=== PATIENT | female | born 1945 | race Caucasian/White ===

== ENCOUNTER → 2016-07-02 | Outpatient (CLI) | payer MEDICARE, BC ==
[~2016-07-02] MED LIST: ASPIRIN 81M81 MG/TA2 PO; CALCIUM 600600 M2 PO; CIPRO 500MG TA500 MG PO; CLEOCIN HC150 MG/CAP PO; COZAAR 50MG50 MG/TAB PO; DILAUDID 2MG TAB2 MG PO; FLONASE NASAL S16 GM NS; GLUCOPHAGE500 MG/TAB PO; LOPID 600M600 MG/TAB PO; LORATADINE10 MG PO; METRONIDAZOLE500 MG PO; MULTIPLE VITAMI1 CAP PO; MULTIPLE VITAMI1 TA5 PO; MYLANTA 150 ML150 M1 PO; NEW ENERGY1 CAP PO; NITROSTAT0.4 MG/TAB SL; NORCO 325 MG-51 TAB; NORCO 325 MG-51 TAB PO; NORCO 325 MG-7.1 TAB PO; PRILOSEC 20MG20 MG PO; PRILOSEC10 MG; SIMVASTATIN10 MG PO; TYLENOL 500MG500 MG PO; ULTRAM50 MG PO; ZESTRIL 5MG5 MG PO; ZOCOR 20MG20 MG PO; ZOFRAN4 M1 PO
[2016-07-02 17:02] LABS: PH 6 (5-8); SQUAMOUS EPITHELIAL 0-2 /hpf; URINE APPEARANCE Clear; URINE BACTERIA Rare /hpf; URINE BILIRUBIN Negative (NEGATIVE); URINE BLOOD 1+ (NEGATIVE); URINE COLOR Yellow; URINE GLUCOSE Negative (NEGATIVE); URINE KETONE Negative (NEGATIVE); URINE RBC 0-2 /hpf; URINE UROBILINOGEN Negative (NEGATIVE)
== END ==
LOC: ZCOL.LAB 16:17
PROVIDERS: Internal Medicine
DX: R31.1 Benign essential microscopic hematuria (principal)

== ENCOUNTER → 2016-07-03 | Outpatient (REF) ==
[2016-07-03 10:07] LABS: INFLUENZA B NEGATIVE
== END ==
LOC: ZCOL.LAB 09:47
PROVIDERS: Internal Medicine
DX: Z01.89 Encounter for other specified special examinations (principal)

== ENCOUNTER → 2016-07-30 | Outpatient (CLI) | payer MEDICARE, BC | LOC: COL.RAD 07:49 | DX: M25.551 Pain in right hip (principal) | CPT/HCPCS: J3301; Q9967 ==

== ENCOUNTER → 2016-08-14 | Outpatient (CLI) | payer MEDICARE, BC | LOC: COL.RAD 12:34 | DX: M25.571 Pain in right ankle and joints of right foot (principal) | CPT/HCPCS: J3301; Q9967 ==

== ENCOUNTER → 2016-09-25 | Outpatient (CLI) | payer MEDICARE, BC | LOC: MC.RAD 09:59 | DX: Z12.31 Encounter for screening mammogram for malignant neoplasm of breast (principal) ==

== ENCOUNTER → 2016-12-10 | Outpatient (CLI) | payer MEDICARE, BC | LOC: COL.RAD 10:47 | DX: M79.671 Pain in right foot (principal) | CPT/HCPCS: J3301; Q9967 ==

== ENCOUNTER → 2017-06-20 | Outpatient (CLI) | payer MEDICARE, BC | LOC: COL.RAD 06-05 13:00 | DX: M79.671 Pain in right foot (principal) | CPT/HCPCS: J3301; Q9967 ==

== ENCOUNTER → 2017-08-11 | Outpatient (CLI) | payer MEDICARE, BC | LOC: COL.CARD 08:56 | DX: R68.89 Other general symptoms and signs (principal) ==

== ENCOUNTER → 2017-10-16 | Outpatient (CLI) | payer MEDICARE, BC | LOC: MC.RAD 10:21 | DX: Z12.31 Encounter for screening mammogram for malignant neoplasm of breast (principal) ==

== ENCOUNTER → 2018-01-30 | Outpatient (CLI) | payer MEDICARE, BC | LOC: COL.RAD 08:30 | DX: M19.071 Primary osteoarthritis, right ankle and foot (principal) | CPT/HCPCS: J3301; Q9967 ==

== ENCOUNTER → 2018-11-03 | Outpatient (CLI) | payer MEDICARE, BC | LOC: MC.RAD 09:56 | DX: Z12.31 Encounter for screening mammogram for malignant neoplasm of breast (principal) ==

== ENCOUNTER 2020-02-25 10:46 | Inpatient (IN) | payer MEDICARE, BC ==
[~2020-02-25] VITALS: Ht 170.2 cm; Wt 99.8 kg
[2020-02-25] MEDS ORDERED: DIABETA1.25 MG PO (11:01)
[2020-02-25] MEDS ORDERED: VITAMIN C500 MG PO (11:02)
[2020-02-25] MEDS ORDERED: PROBIOTIC-SUNMARK (11:03)
[2020-02-25] MEDS ORDERED: OSCAL 500 TAB500 MG PO (11:04)
[2020-02-25] MEDS ORDERED: PRILOSEC10 MG PO (11:04)
[2020-02-25] MEDS ORDERED: CYMBALTA 20MG20 MG PO (11:04)
[2020-02-25] MEDS ORDERED: OMEGA-3 1000 MG1 CAP PO (11:05)
[2020-02-25 11:36] LABS: COLLECTION METHOD CLEAN CATCH
[2020-02-25 11:44] LABS: MUCOUS Present /lpf; PH 6 (5-8); SQUAMOUS EPITHELIAL 0-2 /hpf; URINE APPEARANCE Clear; URINE BACTERIA None Seen /hpf; URINE BILIRUBIN Negative (NEGATIVE); URINE BLOOD Negative (NEGATIVE); URINE COLOR Yellow; URINE GLUCOSE 1+ (NEGATIVE); URINE KETONE Negative (NEGATIVE); URINE LEUKOCYTE ESTERASE Negative (NEGATIVE); URINE NITRATE Negative (NEGATIVE); URINE PROTEIN(semi-quant) Negative (NEGATIVE); URINE UROBILINOGEN Negative (NEGATIVE)
[2020-02-25 12:20] LABS: BASO % 0.2 % (0.0-2.0); EOS % 0.2 % (0-4.0); GRAN # 4.9 (1.4-6.5); GRAN % 81.4 % (42.2-75.2); HEMATOCRIT 38.2 % (37.0-47.0); HEMOGLOBIN 12.5 g/dl (12.5-16.0); LYMPH # 0.7 (1.2-3.4); LYMPH % 12.4 % (20.0-51.0); MEAN CELL VOLUME 88 fl (80.0-100.0); MEAN CORPUSCULAR HEMOGLOBIN 29 pg (27.0-31.0); MEAN CORPUSCULAR HGB CONC 33 g/dl (33.0-37.0); MEAN PLATELET VOLUME 9.7 fl (7.4-10.4); MONO # 0.3 (0.1-0.6); MONO % 5.5 % (1.7-9.3); PLATELET COUNT 143 K/mm3 (130-400); RED BLOOD COUNT 4.33 M/mm3 (4.10-5.30); REDCELL DISTRIBUTION WIDTH-CV 14.2 % (11.5-14.5)
[2020-02-25 12:26] LABS: INR 1.1 (0.8-3.0)
[2020-02-25 12:35] LABS: ALANINE AMINOTRANSFERASE 19 U/L (4-34); ALBUMIN 3.7 gm/dL (3.5-5.0); ALKALINE PHOSPHATASE 74 U/L (50-136); ANION GAP 7 mmol/L (7-16); AST,SGOT 30 U/L (15-37); BILIRUBIN,TOTAL 0.4 mg/dL (0.0-1.0); BLOOD UREA NITROGEN 11 mg/dL (7-17); C-REACTIVE PROTEIN 8.8 mg/dL (0.0-0.9); CALCIUM 7.7 mg/dL (8.4-10.2); CARBON DIOXIDE 27 mmol/L (22-30); CHLORIDE 101 mmol/L (98-107); CREATININE, serum 0.61 (0.52-1.25); GLUCOSE 176 mg/dL (74-106); SODIUM 135 mmol/L (137-145); TOTAL PROTEIN 6.8 gm/dL (6.4-8.2)
[2020-02-25 12:45] LABS: TROPONIN-I < 0.012 ng/mL (0.000-0.035)
--- NOTE | 2020-02-25 19:27 | NUR ---
Pt admitted to floor this afternoon, initial nursing assessments complete.
--- NOTE | 2020-02-25 19:40 | NUR ---
Received report from Jose David. Seen patient awake, lying in bed. She's on O2 at 3lpm via NC. She does have some cough. No tele. With IV on right forearm infusing NS at 75ml/hr. She denies pain. Call light within reach.
[2020-02-25 20:11] VITALS: BP 137/62; PULSE 94; TEMP 99
--- NOTE | 2020-02-25 21:26 | NUR ---
House supervisior called stating patient ddimer 386. Sheeba VERMA notified. No new orders.
[2020-02-25 22:17] VITALS: TEMP 98.8
--- NOTE | 2020-02-25 22:24 | NUR ---
Patient called asking if she can have the inhaler again. Informed Kanu of RT and she said she will give it to the patient. She complains of feeling hot and perspiring. Took her temp and she was 98.8F. Her room temp was set to the warmest temperature. Informed her I will just adjust her room temp so she won't feel warm.
[2020-02-25 23:41] VITALS: BP 105/60; PULSE 87; TEMP 99.7
--- NOTE | 2020-02-26 00:04 | NUR ---
Patient's SPO2 was at 89% on 3lpm. Increased to 4lpm and still at 89%-90%. Increased O2 at 5lpm and she was at 92%. Informed RT that oxygen was increased. Will continue to monitor patient.
[2020-02-26 03:30] VITALS: BP 110/65; PULSE 80; TEMP 98.3
--- NOTE | 2020-02-26 04:00 | NUR ---
Patient complains of acidity/sick stomach. Offered if she can take Tums and she said she's okay with it. Informed Sheeba VERMA via phone call regarding patient's complain and she put an order for Tums. Updated her as well that we increase her O2 from 3lpm to 5lpm via NC.
--- NOTE | 2020-02-26 06:36 | NUR ---
Patient states she was able to sleep after removing her gown as she was perspiring. O2 at 5lpm via NC, with SPO2 at 92%. Patient states she doesn't have any underwear on her, briefs were provided. Remained afebrile the whole night.
[2020-02-26 08:49] VITALS: BP 128/42; PULSE 84; TEMP 97.6
--- NOTE | 2020-02-26 09:22 | NUR ---
Pt napping upon entry, easily awakened, no C/O pain at this time, shift assessments complete, Pt currently on 5 lpm O2.
[2020-02-26 11:12] VITALS: BP 122/64; PULSE 76; TEMP 98.2
--- NOTE | 2020-02-26 11:47 | NUR ---
SW called spouse Gene [phone] to complete intake due to patients current clinical status. Spouse provides that he and patient live in [place]. He also provides that patient currently uses a walking stick to get around the home and is independent with ADL's. Spouse provides that the PCP is Dr. Joe Myers, pharmacy is in [facility], and that patient is able to afford medications. Spouse provides that he is unsure at this time about DPOA-HC paper work, but he is the primary contact. Spouse states that he is not concerned about patient returning home at this time and that he will be the one assisting her when she does come home, and will not need any outside services upon dc. SW will continue to follow.
[2020-02-26 16:00] VITALS: BP 126/62; PULSE 78; TEMP 98.1
[2020-02-26 18:30] VITALS: BP 126/62; PULSE 78; TEMP 98.1
--- NOTE | 2020-02-26 20:00 | NUR ---
Assessment complete. Patient is alert and oriented with no complaints of pain. No increased work of breathing is noted and patient is satting 94% on 8 liters of oxygen. Patient states she feels she is breathing much easier this evening. No edema is present. Lung sounds are clear with fine crackles in the bases. IV fluids infusing at 75 ml/hr. Patient is afebrile. No new concerns at this time; will continue to monitor.
[2020-02-26 22:17] VITALS: BP 116/70; PULSE 71; TEMP 98.6
[2020-02-26 23:05] LABS: BASO % 0.1 % (0.0-2.0); EOS % 0.1 % (0-4.0); GRAN # 6.6 (1.4-6.5); GRAN % 86.5 % (42.2-75.2); HEMOGLOBIN 10.9 g/dl (12.5-16.0); LYMPH # 0.5 (1.2-3.4); LYMPH % 7.1 % (20.0-51.0); MEAN CELL VOLUME 89 fl (80.0-100.0); MEAN CORPUSCULAR HEMOGLOBIN 29 pg (27.0-31.0); MEAN CORPUSCULAR HGB CONC 32 g/dl (33.0-37.0); MEAN PLATELET VOLUME 9.9 fl (7.4-10.4); MONO # 0.4 (0.1-0.6); MONO % 5.4 % (1.7-9.3); PLATELET COUNT 198 K/mm3 (130-400); RED BLOOD COUNT 3.83 M/mm3 (4.10-5.30); REDCELL DISTRIBUTION WIDTH-CV 14.2 % (11.5-14.5)
[2020-02-26 23:07] LABS: HEMATOCRIT 33.9 % (37.0-47.0)
[2020-02-26 23:10] LABS: CALCIUM 7.8 mg/dL (8.4-10.2); CREATININE, serum 0.57 (0.52-1.25); MAGNESIUM 1.6 mg/dL (1.6-2.3); POTASSIUM 4.1 mmol/L (3.4-5.0)
[2020-02-27] VITALS (165 sets, daily range): BP systolic 127–136; BP diastolic 60–78; PULSE 78–90; TEMP 97.8–99.2; O2SAT 79–98
--- NOTE | 2020-02-27 05:47 | NUR ---
Patient pressed call button tonight complaining of facial numbness. Neuro check performed by rn relief charge; No deficits besides very mild left leg weakness. Upon reassessment at 2 hours, left leg weakness had subsided and facial numbness had decreased, per patient. Patient still wears 8 liters oxygen and no increased WOB is noted.
--- NOTE | 2020-02-27 07:46 | NUR ---
REPORT RECEIVED OUTSIDE ROOM AND OT VISITED SHORTLY AFTER. SEEN SOB BUT WAS RECENTLY OUT OF BED. PT UP AD RONI. STRONG COUGH NOTED AND PT REPORTS OCCASIONAL CLEAR PHLEGM. DENIES ANY OTHER NEEDS. REMAINS ON 8L HI ARMANI NC
--- NOTE | 2020-02-27 09:48 | NUR ---
MORNING MEDS GIVEN. PT AOX4. INDEPENDENT AMBULATION IN ROOM. DENIES PAIN. REPORTS NAUSEA WITH VOIDING DURING NIGHT BUT NONE CURRENTLY. REPORTS LOOSE STOOL 2 DAYS AGO. SOB WITH EXERTION. DENIED ABD PAIN. CP, HUMPHREY. FINE CRACKLES TO BASES. STRONG COUGH AND GUAFENESIN GIVEN. OXYGEN INCREASED TO 11L HI ARMANI FROM 10L. MAX SAT ON 10L WAS 88%. CURRENTLY 93% ON 11L. BUBBLER ON. WILL CONT TO MONITOR.
--- NOTE | 2020-02-27 13:10 | NUR ---
TYLENOL GIVEN FOR GENERALIZED ACHES AND PAINS AND CHEST CAVITY PAIN WITH COUGH
--- NOTE | 2020-02-27 13:48 | NUR ---
transfer orders received and processed. report called to Veronica. son Hai had also called requesting update and he was called @ [phone] and all questions answered. pt verbalized understanding for need to transfer to higher level of care for closer monitoring due to increasing oxygen needs. lab unable to obtain sample despite attempts by multiple personell. need for PICC discussed with receiving nurse. RT FA IV slightly tender but no signs of infiltration noted. ice applied for pain relief. awaiting IV abx to complete before transfer. pt no new complaints at this time
--- NOTE | 2020-02-27 14:48 | NUR ---
Report received from Lars WILLIAMSON at 2318. Patient arrived in ICU via wheelchair at 1424. Patient tolerated well but does complain of shortness of breath with activity. O2 on via high flow nasal cannula at 11 LPM. IV SL.
--- NOTE | 2020-02-27 19:49 | NUR ---
SOCIALABLE TALKATIVE PATIENT, DENIES DISCOMFORT, STATES "I FEEL TIRED"
[2020-02-28] VITALS (601 sets, daily range): BP systolic 116–146; BP diastolic 63–84; PULSE 56–83; TEMP 97.5–99.1; O2SAT 47–100
[2020-02-28 05:15] LABS: BASO % 0.1 % (0.0-2.0); GRAN # 7.4 (1.4-6.5); GRAN % 87.5 % (42.2-75.2); HEMATOCRIT 36.5 % (37.0-47.0); HEMOGLOBIN 11.8 g/dl (12.5-16.0); LYMPH # 0.6 (1.2-3.4); LYMPH % 6.5 % (20.0-51.0); MEAN CELL VOLUME 88 fl (80.0-100.0); MEAN CORPUSCULAR HEMOGLOBIN 28 pg (27.0-31.0); MEAN CORPUSCULAR HGB CONC 32 g/dl (33.0-37.0); MEAN PLATELET VOLUME 9.5 fl (7.4-10.4); MONO # 0.4 (0.1-0.6); MONO % 5.2 % (1.7-9.3); PLATELET COUNT 214 K/mm3 (130-400); RED BLOOD COUNT 4.15 M/mm3 (4.10-5.30); REDCELL DISTRIBUTION WIDTH-CV 14.2 % (11.5-14.5)
[2020-02-28 05:17] LABS: CALCIUM 8.1 mg/dL (8.4-10.2); CREATININE, serum 0.6 (0.52-1.25); POTASSIUM 4.3 mmol/L (3.4-5.0)
--- NOTE | 2020-02-28 08:24 | NUR ---
Care taken over on this patient after receiving report from TERI Main. Patient c/o nausea and generalized not feeling well. Call placed to Dr. Mcgovern for ok to give zofran early since last dose was at approximately 0430. Dr. Mcgovern gives permission for additional zofran dose. Will continue to monitor
--- NOTE | 2020-02-28 15:00 | NUR ---
Report received from Kristie WILLIAMSON. Pt in bed resting, currently appears to be napping will conitnue to monitor.
--- NOTE | 2020-02-28 17:39 | NUR ---
Pt in bed resting up ad freida to toilet and resting between bathroom visits. States she feels better today than she has felt in days. Resting quietly in bed with airvo at 50L. Able to converse freely with me without difficulty. Will continue to monitor and give report to nightshift nurse who will resume care.
[2020-02-29] VITALS (495 sets, daily range): BP systolic 114–141; BP diastolic 62–74; PULSE 58–89; TEMP 97.8–98.9; O2SAT 82–100
[2020-02-29 04:28] LABS: BASO % 0.2 % (0.0-2.0); GRAN # 4.9 (1.4-6.5); GRAN % 81.5 % (42.2-75.2); HEMOGLOBIN 11.2 g/dl (12.5-16.0); LYMPH # 0.7 (1.2-3.4); LYMPH % 11.4 % (20.0-51.0); MEAN CELL VOLUME 87 fl (80.0-100.0); MEAN CORPUSCULAR HEMOGLOBIN 29 pg (27.0-31.0); MEAN CORPUSCULAR HGB CONC 33 g/dl (33.0-37.0); MEAN PLATELET VOLUME 9.3 fl (7.4-10.4); MONO # 0.4 (0.1-0.6); MONO % 5.9 % (1.7-9.3); PLATELET COUNT 213 K/mm3 (130-400); RED BLOOD COUNT 3.91 M/mm3 (4.10-5.30); REDCELL DISTRIBUTION WIDTH-CV 14.2 % (11.5-14.5)
[2020-02-29 04:37] LABS: ALBUMIN 3.3 gm/dL (3.5-5.0); BILIRUBIN,TOTAL 0.5 mg/dL (0.0-1.0); CALCIUM 7.8 mg/dL (8.4-10.2); CREATININE, serum 0.57 (0.52-1.25); TOTAL PROTEIN 6.4 gm/dL (6.4-8.2)
--- NOTE | 2020-02-29 07:44 | NUR ---
Pt complaining of nausea. Too early for zofran, prn tums given. Will hold off on breakfast and am meds at this time. Pt has no other complaints at this time.
--- NOTE | 2020-02-29 11:13 | NUR ---
The patient is in isolation due to being Covid positive. Supervisor Data Processing staffed with hospitalist and had PT/OT ordered.
[2020-03-01] VITALS (560 sets, daily range): BP systolic 110–141; BP diastolic 51–78; PULSE 58–99; TEMP 98.1–99.3; O2SAT 60–100
[2020-03-01 08:05] LABS: ALBUMIN 3.1 gm/dL (3.5-5.0); BILIRUBIN,TOTAL 0.4 mg/dL (0.0-1.0); CALCIUM 7.8 mg/dL (8.4-10.2); CREATININE, serum 0.55 (0.52-1.25); POTASSIUM 4.1 mmol/L (3.4-5.0); TOTAL PROTEIN 6.2 gm/dL (6.4-8.2)
[2020-03-01 08:24] LABS: GRAN # 5.5 (1.4-6.5); GRAN % 84.7 % (42.2-75.2); HEMOGLOBIN 11.4 g/dl (12.5-16.0); LYMPH # 0.6 (1.2-3.4); MEAN CELL VOLUME 88 fl (80.0-100.0); MEAN CORPUSCULAR HEMOGLOBIN 29 pg (27.0-31.0); MEAN CORPUSCULAR HGB CONC 33 g/dl (33.0-37.0); MONO # 0.3 (0.1-0.6); MONO % 5.2 % (1.7-9.3); PLATELET COUNT 247 K/mm3 (130-400); RED BLOOD COUNT 3.99 M/mm3 (4.10-5.30); REDCELL DISTRIBUTION WIDTH-CV 13.9 % (11.5-14.5)
[2020-03-01 08:28] LABS: HEMATOCRIT 35.1 % (37.0-47.0)
--- NOTE | 2020-03-01 11:14 | NUR ---
Blackener attended clinical rounds with the team. The pateint is currently in isolation due to Covid-19. Hospitalist was in the room. SW was outside of the room. The patient's son was on speaker phone. The patient states, "I am feeling better" and she is hungry. The patient is independent in her room and is able to take herself to the toilet. She is trying to stay active in her room. The patient is still requiring oxygen.
--- NOTE | 2020-03-01 13:58 | NUR ---
Marketing Lead attempted to contact the patient's , Gene to introduce oneself and to provide support, left trinity.
--- NOTE | 2020-03-01 14:38 | NUR ---
The patient's Geronimo contacted this Pediatric Nurse. GABRIEL and Geronimo discussed the discharge plan. The plan is for the patient to return home when able. Geronimo will assist with anything the patient needs. Geronimo states he talks to the patient daily and has no questions at this time.
[2020-03-02] VITALS (538 sets, daily range): BP systolic 96–145; BP diastolic 55–86; PULSE 64–102; TEMP 97.9–98.8; O2SAT 64–100
[2020-03-02 05:51] LABS: BASO % 0.1 % (0.0-2.0); EOS % 0.4 % (0-4.0); GRAN # 6.6 (1.4-6.5); GRAN % 82.1 % (42.2-75.2); HEMOGLOBIN 11.5 g/dl (12.5-16.0); LYMPH # 0.8 (1.2-3.4); LYMPH % 10.1 % (20.0-51.0); MEAN CELL VOLUME 87 fl (80.0-100.0); MEAN CORPUSCULAR HEMOGLOBIN 28 pg (27.0-31.0); MEAN CORPUSCULAR HGB CONC 33 g/dl (33.0-37.0); MEAN PLATELET VOLUME 9.4 fl (7.4-10.4); MONO # 0.5 (0.1-0.6); MONO % 5.8 % (1.7-9.3); PLATELET COUNT 246 K/mm3 (130-400); RED BLOOD COUNT 4.06 M/mm3 (4.10-5.30); REDCELL DISTRIBUTION WIDTH-CV 14.2 % (11.5-14.5)
[2020-03-02 05:57] LABS: HEMATOCRIT 35.2 % (37.0-47.0)
[2020-03-02 06:01] LABS: ALBUMIN 3.1 gm/dL (3.5-5.0); BILIRUBIN,TOTAL 0.4 mg/dL (0.0-1.0); CALCIUM 8.2 mg/dL (8.4-10.2); CREATININE, serum 0.6 (0.52-1.25); POTASSIUM 4.2 mmol/L (3.4-5.0); TOTAL PROTEIN 6.2 gm/dL (6.4-8.2)
--- NOTE | 2020-03-02 20:00 | NUR ---
PATIENT IS VERY UPSET ABOUT DELAY IN MEAL AND AIRVOW NOT WORKIN PROPERLY, NEW AIRVOW BROUGHT IN, AND CONSOLED PATIENT WITH FOOD, AND POSITIVE COMMUNICATION
--- NOTE | 2020-03-02 20:29 | NUR ---
PT IS ON AIRVO. AIRVO IN ROOM WOULD WORK INTERMITTENTLY DROPPING PTS SATS INTO THE LOW 80'S WHEN NOT WORKING. THEREFORE, A NEW AIRVO WAS SET UP WITH CURRENT SETTINGS AND PUT ON PT. THERE ARE NOW 2 AIRVOS IN PTS ROOM PT IS COVID + AND MACHINES NEED TO BE SANITIZED ONCE PT IS COVID - OR WHEN PT IS MOVED TO ANOTHYER ROOM OR DISCHARGED HOME. PT IS IFEANYI WELL WITH NO DISTRESS NOTED AT THIS TIME.
[2020-03-03] VITALS (734 sets, daily range): BP systolic 120–142; BP diastolic 65–88; PULSE 57–104; TEMP 98.1–99.1; O2SAT 71–100
[2020-03-03 04:45] LABS: MEAN CELL VOLUME 86 fl (80.0-100.0); MEAN CORPUSCULAR HEMOGLOBIN 28 pg (27.0-31.0); MEAN CORPUSCULAR HGB CONC 33 g/dl (33.0-37.0); MEAN PLATELET VOLUME 9.3 fl (7.4-10.4); PLATELET COUNT 266 K/mm3 (130-400); RED BLOOD COUNT 4.27 M/mm3 (4.10-5.30); REDCELL DISTRIBUTION WIDTH-CV 14.3 % (11.5-14.5)
[2020-03-03 04:48] LABS: HEMATOCRIT 36.7 % (37.0-47.0)
[2020-03-03 04:54] LABS: ALBUMIN 3.3 gm/dL (3.5-5.0); BILIRUBIN,TOTAL 0.4 mg/dL (0.0-1.0); CALCIUM 8.6 mg/dL (8.4-10.2); CREATININE, serum 0.58 (0.52-1.25); POTASSIUM 4.2 mmol/L (3.4-5.0); TOTAL PROTEIN 6.4 gm/dL (6.4-8.2)
[2020-03-03 05:11] LABS: EOSINOPHIL 1 % (0-4); LYMPHOCYTE 5 % (20.0-51.0); NEUTROPHILS 88 % (42.0-75.2); PLATELET ESTIMATE NORMAL (NORMAL)
--- NOTE | 2020-03-03 09:24 | NUR ---
Rough And Truing Machine Operator attended clinical rounds with the team. The patient is in isolation. The patient is still requiring 45L on high flow cannula this day.
[2020-03-04] VITALS (659 sets, daily range): BP systolic 94–124; BP diastolic 58–71; PULSE 63–80; TEMP 98.2–98.7; O2SAT 63–99
[2020-03-04 06:28] LABS: HEMATOCRIT 39.4 % (37.0-47.0); HEMOGLOBIN 12.8 g/dl (12.5-16.0); MEAN CELL VOLUME 86 fl (80.0-100.0); MEAN CORPUSCULAR HEMOGLOBIN 28 pg (27.0-31.0); MEAN CORPUSCULAR HGB CONC 33 g/dl (33.0-37.0); MEAN PLATELET VOLUME 9.3 fl (7.4-10.4); PLATELET COUNT 310 K/mm3 (130-400); RED BLOOD COUNT 4.56 M/mm3 (4.10-5.30); REDCELL DISTRIBUTION WIDTH-CV 14.4 % (11.5-14.5)
[2020-03-04 06:43] LABS: ALBUMIN 3.4 gm/dL (3.5-5.0); BILIRUBIN,TOTAL 0.5 mg/dL (0.0-1.0); CALCIUM 8.7 mg/dL (8.4-10.2); CREATININE, serum 0.59 (0.52-1.25); POTASSIUM 3.9 mmol/L (3.4-5.0); TOTAL PROTEIN 6.6 gm/dL (6.4-8.2)
[2020-03-04 07:18] LABS: BAND 1 % (0-10); LYMPHOCYTE 12 % (20.0-51.0); NEUTROPHILS 80 % (42.0-75.2); PLATELET ESTIMATE NORMAL (NORMAL)
[2020-03-04 08:49] LABS: URINE TOTAL VOLUME 2500 mL
[2020-03-04 08:50] LABS: CREATININE, serum 0.59 (0.52-1.25)
[2020-03-04 09:14] LABS: URINE CREATININE CLEARANCE 78.8 mL/min (88-128)
[2020-03-05] VITALS (306 sets, daily range): BP systolic 99–134; BP diastolic 47–78; PULSE 17–104; TEMP 97.8–99.1; O2SAT 82–99
--- NOTE | 2020-03-05 13:10 | NUR ---
PT ARRIVED TO FLOOR, ON AIRVO, DENIES PAIN OR DISCOMFORT, PT IS NOT IN ANY DISTRESS, PT AOX4, IND IN ROOM, NO OTHER NEEDS AT THIS TIME.
--- NOTE | 2020-03-05 17:08 | NUR ---
PT PLEASANT, AOX4, C/O AIR BEING TOO HOT IN AIRVO AND IT LEAKING WATER, RT AWARE AND GOING TO FIX PROBLEM, BS TAKEN, PT DENIES PAIN OR DISCOMFORT, WATER AT BEDSIDE, NO OTHER NEEDS AT THIS TIME.
--- NOTE | 2020-03-05 18:08 | NUR ---
"HOT AIR" IN AIRVO RESOLVED, PT STATES SHE IS COMFORTABLE AND THE TEMPERATURE IS GOOD, FAN BEING BROUGHT UP FROM ICU FOR PT.
[2020-03-06] VITALS (7 sets, daily range): BP systolic 103–140; BP diastolic 51–80; PULSE 65–75; TEMP 97.5–98.9
--- NOTE | 2020-03-06 08:30 | NUR ---
Patient sitting up in bed talk on the speaker phone with family. A&Ox4. VSS. 10L High flow O2. PICC SULAIMAN CDI. No complaints of SOB, pain or discomfort. Droplet/contact precautions in place. No further needs expressed from the patient. Call light within reach
--- NOTE | 2020-03-06 13:45 | NUR ---
Patient had complaints of feeling light headed. Nurse assessed the patient and O2 sats WNL. Patient thinks its r/t her blood sugars. She states that her body has become used to being in the 300-400 range while in the hospital and now its in the 100's. She ate some nuts and drank a diet pepsi and stated that she felt better. Patient was able to ambulate to the bathroom independently without becoming dizzy. No further needs expressed from the patient. Call light within reach
--- NOTE | 2020-03-06 14:07 | NUR ---
Forensic Materials Engineer contacted the patient via cell phone. The patient is currently on 10L of oxgyen and plans to return home at discharge. SW contacted the patient's Gene to discuss the discharge plan. The plan is home. GABRIEL discussed that PT is recommending home health or outpatient PT. He would like to discuss that with the patient before making any decisions. GABRIEL collaborated the above information with the patient's nurse.
--- NOTE | 2020-03-06 15:30 | NUR ---
PICC intact right upper arm with sterile dressing change done with insertion site cleansed with chloraprep x 1, chlorhexidine impregnated disk, skin prep, stat lock, and tegaderm applied. no signs or symptoms of IV complications noted. no concerns voiced.
--- NOTE | 2020-03-06 18:02 | NUR ---
Patient had one episode of dizziness which the patient r/t blood sugar dropping after getting insulin. WBG has been liable throughout the patients hospital stay. Patient A&Ox4. VSS 9L high flow NC. No reported SOB. PICC SULAIMAN CDI. Droplet/contact precautions in place. No further needs expressed from the patient. Call light within reach
--- NOTE | 2020-03-06 21:39 | NUR ---
Received report from TERI Hong. A/Ox4. Denies any pain, nausea or SOb at this time. Meds administered. Tele monitor in place, leads checked. PICC to SULAIMAN intact, flushed, dressing CDI. On [id number]. Needs met at this time. call light within reach.
[2020-03-07 03:55] VITALS: BP 101/53; PULSE 66; TEMP 97.8
--- NOTE | 2020-03-07 06:33 | NUR ---
Pt c/o abdominal pain, prn arcenio administered as requested. Warm water and waarm blanket provided as requested. No other complaints. Meds adminisetered. Call light within reach.
--- NOTE | 2020-03-07 06:57 | NUR ---
Report given to TERI Maloney.
[2020-03-07 08:14] VITALS: BP 117/44; PULSE 84; TEMP 98.1
--- NOTE | 2020-03-07 08:38 | NUR ---
Assessment complete. Patient sitting up in bed eating breakfast. O2 sat was a little low on vitals assessment but patient was eating and stated she "forgot to breathe". Now that she is one with breakfast patiet is satting 92 on 7 L O2 and denies SOB. No complaints of pain or discomfort. PICC site is CD&I. States she feels pretty good. No other needs were expressed at this time. Call light is in reach.
[2020-03-07 12:44] VITALS: BP 132/50; PULSE 98; TEMP 97.8
[2020-03-07 16:00] VITALS: BP 128/54; PULSE 72; TEMP 97.8
--- NOTE | 2020-03-07 17:20 | NUR ---
Patient has had an uneventful shift. Minimal needs through the day. No increased need for oxygen through the day, blood sugars relatively stable. No pain or discomfort. Call light is in reach.
[2020-03-07 20:00] VITALS: BP 109/51; PULSE 68; TEMP 98.4
--- NOTE | 2020-03-07 21:00 | NUR ---
Denies SOB, pain, nausea, cough at this time. States gas pain/abdomen pain is better after having BM earlier today. MEds administered. Tele in place. PICC to SULAIMAN intact, flushed, dressing CDI. On 6LHFNC. Dr Martinez called, pt status updated. NO concerns at this time. Needs met. Call light within reach.
[2020-03-08] VITALS: BP 110/53; PULSE 56; TEMP 98.1
[2020-03-08 03:44] VITALS: BP 111/60; PULSE 58; TEMP 97.6
--- NOTE | 2020-03-08 06:25 | NUR ---
Pt uneventful during this shift. Remained on 6L02HF. MEds administered. Needs met. Call light within reach.
[2020-03-08 06:50] LABS: BASO % 0.1 % (0.0-2.0); EOS # 0.1 (0.0-0.7); EOS % 1.3 % (0-4.0); GRAN # 6.9 (1.4-6.5); GRAN % 75.8 % (42.2-75.2); HEMOGLOBIN 12.1 g/dl (12.5-16.0); LYMPH # 1.3 (1.2-3.4); LYMPH % 14.6 % (20.0-51.0); MEAN CELL VOLUME 88 fl (80.0-100.0); MEAN CORPUSCULAR HEMOGLOBIN 29 pg (27.0-31.0); MEAN CORPUSCULAR HGB CONC 33 g/dl (33.0-37.0); MEAN PLATELET VOLUME 9.6 fl (7.4-10.4); MONO # 0.6 (0.1-0.6); PLATELET COUNT 265 K/mm3 (130-400); REDCELL DISTRIBUTION WIDTH-CV 14.7 % (11.5-14.5)
[2020-03-08 07:04] LABS: CALCIUM 8.5 mg/dL (8.4-10.2); CREATININE, serum 0.62 (0.52-1.25); POTASSIUM 4.1 mmol/L (3.4-5.0)
--- NOTE | 2020-03-08 07:11 | NUR ---
Report given to TERI London.
[2020-03-08 08:06] VITALS: BP 111/74; PULSE 83; TEMP 98.1
[2020-03-08 11:28] VITALS: BP 112/56; PULSE 70; TEMP 98.4
--- NOTE | 2020-03-08 14:41 | NUR ---
Pt assessment completed and charted. Medications administered per mar. Pt A&O, independent in room, on 6L HFNC. Pt denies dizziness, N/V/D, chest pain, numbness or tingling, abdominal pain. RUL LS coarse, BB cta.Pt has SULAIMAN PICC in place, both ports flush w/ good blood return. BS active. Pulses strong bilaterally. HRRR. Pt showered this morning. Insulin provided per mar and scale as needed. No further needs at this time. Pt provided w/ ice and water.
[2020-03-08 16:00] VITALS: BP 113/56; PULSE 78; TEMP 98.3
--- NOTE | 2020-03-08 16:35 | NUR ---
Rug Scratcher contacted the patient's , Geronimo to provide update and revisit the discharge plan. Geronimo is ready for his to go home. He has purchased a bedside commode and is ready to assist her in any way he has to. SW contacted the patient follow up. The patient is currently on oxygen and will likely need it a discharge. SW discussed DME options and she chose [facility] #[phone]. SW attempted to contact CME to inquire about them being able to accommodate the patient, left message.
--- NOTE | 2020-03-08 16:40 | NUR ---
Pt called stating she felt dizzy and had a bit of a headache. VSS obtained, stable at this time. Pt states she thinks it was her BS and ate some snacks that she has at bedside and now feels better. pt requested tums and tylenol, provided/administerd per JUL. Will check BS before dinner. No further needs.
--- NOTE | 2020-03-08 18:24 | NUR ---
BS checked, 246, sliding scale and meds administered per jul. Pt eating dinner, no other needs.
[2020-03-08 19:38] VITALS: BP 108/45; PULSE 71; TEMP 98
--- NOTE | 2020-03-08 22:30 | NUR ---
Pt resting in bed w/o any complaints of dizziness, SOB, nausea, or any other discomfort. On 5LO2. Tele monitor in place. PICC to SULAIMAN intact, flushed, dressing CDI. Meds administered as ordered. Water provided. Needs met. Call light within reach.
[2020-03-09 01:23] VITALS: BP 108/45; PULSE 76; TEMP 98.2
--- NOTE | 2020-03-09 01:35 | NUR ---
Pt requested tylenol for headache and tums. Administered as requested. No other needs at this time. Call light within reach.
[2020-03-09 04:40] VITALS: BP 130/41; PULSE 62; TEMP 97.6
--- NOTE | 2020-03-09 06:25 | NUR ---
warm blankets and warm water provided to pt as requested for abdominal/gas pain. PRN tums and tylenol administered as requested by pt. no other complaints. call light within reach. meds administered.
[2020-03-09 06:29] LABS: BASO % 0.2 % (0.0-2.0); EOS # 0.1 (0.0-0.7); EOS % 0.8 % (0-4.0); GRAN # 7.7 (1.4-6.5); HEMOGLOBIN 11.7 g/dl (12.5-16.0); LYMPH # 1.3 (1.2-3.4); LYMPH % 13.2 % (20.0-51.0); MEAN CELL VOLUME 89 fl (80.0-100.0); MEAN CORPUSCULAR HEMOGLOBIN 29 pg (27.0-31.0); MEAN CORPUSCULAR HGB CONC 32 g/dl (33.0-37.0); MEAN PLATELET VOLUME 9.8 fl (7.4-10.4); MONO # 0.7 (0.1-0.6); MONO % 6.7 % (1.7-9.3); PLATELET COUNT 255 K/mm3 (130-400); RED BLOOD COUNT 4.11 M/mm3 (4.10-5.30); REDCELL DISTRIBUTION WIDTH-CV 14.7 % (11.5-14.5)
[2020-03-09 06:41] LABS: HEMATOCRIT 36.4 % (37.0-47.0)
[2020-03-09 06:44] LABS: CALCIUM 8.5 mg/dL (8.4-10.2); CREATININE, serum 0.64 (0.52-1.25); POTASSIUM 3.9 mmol/L (3.4-5.0)
--- NOTE | 2020-03-09 06:48 | NUR ---
Report given to TERI London.
--- NOTE | 2020-03-09 07:33 | NUR ---
SPO2 92-94% ON 3LPM THIS AM, DI RLL. WALKED AROUND ROOM FOR 5 MIN ON RA, SPO2 87-90% WITH NO SOB.
[2020-03-09 08:05] VITALS: BP 117/43; PULSE 73; TEMP 97.8
--- NOTE | 2020-03-09 09:17 | NUR ---
Pt assessment completed and charted. medications administered per jul. pt is A&O, independent in room, on 3L HF NC, turned down from 5L this morning by RT. Pt tolerating well, satting low 90s. pt denies SOB, chest pain, dizziness, N/V/D, abdominal pain, cough, numbness or tingling, headache. Pt has SULAIMAN PICC that flushes well w/ good blood return to both ports. LS cta upper lobes, bases diminished. BS active, HRRR. Pulses strong bilaterally. No sliding scale needed this morning. Pt provided w/ supplies to shower and second cup of coffee. No other needs expressed, VSS.
--- NOTE | 2020-03-09 10:40 | NUR ---
PATIENT REQUIRES 2LPM DURING AMBULATION AND 1PLM AT REST.
--- NOTE | 2020-03-09 11:27 | NUR ---
Nia from [employer] contacted this Supply Planner. The patient's oxygen needs were discussed and she reports they will be able to go to the patient' home to set up the concentrator and her can bring the patient her tank for discharge. SW collaborated the above information with the patient's nurse.
--- NOTE | 2020-03-09 11:42 | NUR ---
Social Work staffed with hospitalist and he reports the patient's anticipated discharge will be Friday, 03/10. The exercise oximetry was completed. GABRIEL faxed HNP/Facesheet/Exercise Oximetry to [place] with [employer] then contacted her regarding the above update. She will be able to go out to the patient's home on Friday to set up concentrator and give the patient's the portable oxygen tank. GABRIEL attempted to contact Gene regarding the above information, left message. GABRIEL collaborated the above information with the patient's nurse.
[2020-03-09 12:15] VITALS: BP 117/53; PULSE 76; TEMP 98
--- NOTE | 2020-03-09 13:28 | NUR ---
Pt doing well, laying in bed, has showered. No issues noted. Ambulating in room on own. Denies pain, dizziness, headache. No needs expressed at this time. Mariposa, infectioous disease called, inquiring about second covid swab. Dr. Wells contacted and stated he would give Mariposa a call.
[2020-03-09 16:14] VITALS: BP 119/48; PULSE 78; TEMP 97.6
--- NOTE | 2020-03-09 16:33 | NUR ---
Mental Health Advanced Practice Nurse contacted the patient via cell phone to follow up. The patient states she has been in contact with [facility] about setting her oxygen in the home. Her will bring her oxygen tank to the hospital. GABRIEL presented the IM form to the patient. She verbalized understanding and gave SW permission to sign the form. A copy was provided to the patient and original was placed in the chart. GABRIEL collaborated the above information with the patient's nurse.
[2020-03-09 20:07] VITALS: BP 116/69; PULSE 70; TEMP 98.1
--- NOTE | 2020-03-09 21:10 | NUR ---
Patient assessed at this time. Alert and oriented x 4, and able to make needs known. Denies having pain and discomfort at this time. Double lumen PICC to RUE flushed. Site is without redness, warmth, swelling, and pain. Dressing CDI. Denies having SOB and dyspnea. LS faint crackles throughout. Respirations even and unlabored. Continues on oxygen at 3 L/min via NC. HRR. Telemetry: normal sinus. Capillary refill less than 3 seconds. Non-tenting skin turgor. BSAx4. Abdomen soft and non-tender. Non-tenting skin turgor. BSA x 4. Abdomen soft and non-tender. No edema. Voices no questions, needs, or concerns at this time. Resting in bed with call light within reach.
[2020-03-10 00:13] VITALS: BP 117/54; PULSE 67; TEMP 97.8
[2020-03-10 04:05] VITALS: BP 108/53; PULSE 63; TEMP 98.3
--- NOTE | 2020-03-10 05:14 | NUR ---
Patient given PRN APAP as requested for headache once during the night. Hollis has voiced no further questions, needs, or concerns this shift. Resting in bed with call light within reach.
[2020-03-10 07:43] VITALS: BP 104/50; PULSE 78; TEMP 99.3
--- NOTE | 2020-03-10 08:50 | NUR ---
Pt awake and alert this morning, no C/O pain at this time, shift assessments complete, left Pt call light in reach, bed in lowest position.
[2020-03-10] MEDS ORDERED: OXYGEN NASAL.CANN (09:58)
--- NOTE | 2020-03-10 10:52 | NUR ---
The patient is to [facility] discharge home today, 03/10 with her , Geronimo and their daughter. The patient is independent in the room and does not need HHS. The patient is needing 2L of oxgyen. [facility] [employer] is providing the oxygen tanks. GABRIEL faxed script and Hospitalist note to Nia with CME. GABRIEL contacted the patient's Geronimo to review the discharge plan. He is agreeable the plan of patient returning home. Geronimo is awaiting the oxygen deliver to the home before picking up the patient. GABRIEL collaborated the above information with the patient's nurse.
[2020-03-10 11:38] VITALS: BP 115/47; PULSE 70; TEMP 99.3
--- NOTE | 2020-03-10 16:30 | NUR ---
Pt discharged to home, discussed discharge instructions with Pt, answered questions. Escorted Pt to entrtance, assisted Pt into vehicle, Pt left with family via private auto.
== END 2020-03-10 16:30 | disposition home or self-care (01) | DRG 177 ==
LOC: COL.ER 10:46 → PEDS 12:59 → ICU 02-27 13:57 → MEDICAL 03-05 13:18
PROVIDERS: Emergency Medicine; Hospitalist; Internal Medicine Nephrology; Nurse Practitioner Family; Student in an Organized Health Care Education/Training Program; ADMIT Internal Medicine
PROC: XW033E5 Introduction of Remdesivir Anti-infective into Peripheral Vein, Percutaneous Approach, New Technology Group 5 (ICD-10-PCS; principal; 2020-02-25)
PROC: 02HV33Z Insertion of Infusion Device into Superior Vena Cava, Percutaneous Approach (ICD-10-PCS; 2020-02-28)
DX: U07.1 COVID-19 (principal); J12.89 Other viral pneumonia; J96.01 Acute respiratory failure with hypoxia; I10 Essential (primary) hypertension; K21.9 Gastro-esophageal reflux disease without esophagitis; E11.65 Type 2 diabetes mellitus with hyperglycemia; E78.5 Hyperlipidemia, unspecified; J45.909 Unspecified asthma, uncomplicated; Z79.84 Long term (current) use of oral hypoglycemic drugs; Z88.0 Allergy status to penicillin; Z88.2 Allergy status to sulfonamides; Z88.6 Allergy status to analgesic agent; E11.649 Type 2 diabetes mellitus with hypoglycemia without coma; K59.00 Constipation, unspecified
CPT/HCPCS: 99223-AI; 99232-AI; 99233-AI; 99239; C1751; J0456; J0696; J1100; J1650; J1815; J2405; J3475; J7030; J7050; J8540

== ENCOUNTER → 2022-02-18 | Outpatient (CLI) | payer MEDICARE, BC ==
[~2022-02-18] MED LIST changes: +CYMBALTA 20MG20 MG PO; +DIABETA1.25 MG PO; +OMEGA-3 1000 MG1 CAP PO; +OSCAL 500 TAB500 MG PO; +OXYGEN NASAL.CANN; +PRILOSEC10 MG PO; +PROBIOTIC-SUNMARK; +VITAMIN C500 MG PO
== END ==
LOC: COL.RAD 07:48
DX: G93.0 Cerebral cysts (principal)